=== PATIENT | female | born 2005 | race Caucasian/White ===

== ENCOUNTER → 2024-02-11 | Outpatient (CLI) | payer OTHER, SELFPAY ==
--- NOTE | 2024-02-11 07:35 | MRI_ITS ---
STUDY: MRI RIGHT ANKLE WITHOUT CONTRAST REASON FOR EXAM: Female, 18 years old. SUBLUXATION OF PERONEAL TENDON, posterior pain TECHNIQUE: Standardized fat and water weighted pulse sequences were obtained in all 3 orthogonal planes. COMPARISON: None. FINDINGS: Normal subcutis adipose space. Normal posterior tibialis tendon. Normal flexor digitorum longus tendon. Normal flexor hallucis longus tendon. Normal peroneus longus and brevis tendons. Normal tibialis anterior tendon. Normal extensor hallucis longus tendon. Normal extensor digitorum longus tendons. Normal Achilles tendon and teno-osseous insertion. Normal plantar fascia. Normal plantar calcaneal tubercles. Normal intrinsic muscles of the rearfoot. Normal distal tibiofibular syndesmotic ligamentous complex. There is scarring with thickening of the anterior talofibular ligament consistent with a remote sprain. There is scarring with thickening of the talocalcaneal subtalar ligament consistent with a remote or chronic sprain. Severe contusion of the inferior aspect of the talus adjacent to the sinus Tarsi. Normal deltoid ligamentous complexes. Normal plantar calcaneonavicular (spring) ligament. There is a joint effusion of the tibiotalar articulation with capsular distension. Normal talar dome. Normal subtalar articulations. 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 Normal calcaneocuboid articulation. Normal navicular-cuneiform articulations. MRI/Lower Ext Joint Only (Routine) IMPRESSION: 1. Prior anterior talofibular ligament tear/sprain with tibiotalar joint effusion, severe contusion of the inferior talus near the sinus Tarsi, and sinus Tarsi syndrome. 2. 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 3. Intact peroneal tendons. Electronically Signed: Stoney Goodwin MD at 13:48 EDT ,
== END | disposition home or self-care (01) ==
PROVIDERS: PCP Family Medicine; Referring Provider Orthopaedic Surgery; Visit Provider Orthopaedic Surgery
DX: M24.471 Recurrent dislocation, right ankle (principal)
CPT/HCPCS: 73721